=== PATIENT | male | born 1960 | race Caucasian/White ===

== ENCOUNTER 2017-09-15 07:08 | Emergency (ER) | payer MEDICAID ==
[2017-09-15 08:51] VITALS: BP 111/61
== END 2017-09-15 08:51 | disposition home or self-care (01) ==
LOC: ED 07:08
DX: M54.16 Radiculopathy, lumbar region (principal)
CPT/HCPCS: J1100; J1885

== ENCOUNTER 2019-08-13 08:31 | Emergency (ER) | payer OTHER ==
[~2019-08-13] VITALS: Ht 167.6 cm; Wt 79.5 kg
[2019-08-13 08:48] VITALS: Ht 167.6 cm; Wt 79.5 kg
[2019-08-13 10:55] VITALS: BP 115/69
== END 2019-08-13 10:55 | disposition home or self-care (01) ==
LOC: ED 08:31
DX: B02.9 Zoster without complications (principal); Z98.890 Other specified postprocedural states